=== PATIENT | male | born 1965 | race African-American/Black ===

== ENCOUNTER 2017-03-10 06:27 | Emergency (ER) | payer MEDICAID, OTHER ==
[~2017-03-10] VITALS: Ht 177.8 cm; Wt 86.2 kg
[~2017-03-10 06:27] MED LIST: NAPROXEN500 M2 ORAL; NKM
[2017-03-10 06:43] VITALS: BP 122/74
[2017-03-10 07:20] VITALS: BP 122/74
--- NOTE | 2017-03-10 07:26 | Emergency Room Report ---
History of Present Illness General Chief Complaint: General Complaint Source: Patient Present Illness HPI This patient states that he has noticed an itchy area on the skin of the back of his neck for the past several months. He has not seen his primary care physician for this. He denies fever or chills. He denies nausea or vomiting. He has no other complaints. Allergies: Coded Allergies: No Known Allergies (Unverified , 03/02/13) Patient History Past Medical History: none Social History: Denies: alcohol use, drug use, smoking Reviewed Nursing Documentation: PMH: Agreed, PSxH: Agreed Nursing Documentation-PMH Past Medical History: No Stated History Review of Systems All Other Systems: negative except mentioned in HPI Physical Exam Vital Signs Date Time Temp Pulse Resp B/P Pulse Ox O2 Delivery O2 Flow Rate FiO2 03/10/17 06:33 97.9 82 16 122/74 100 Room Air Sp02 EP Interpretation: reviewed, normal General Appearance: no apparent distress, alert, GCS 15, non-toxic Head: normocephalic, atraumatic Eyes: bilateral eye PERRL, bilateral eye normal inspection ENT: hearing grossly normal, normal pharynx, no angioedema, normal voice Neck: full range of motion, supple/symm/no masses Respiratory: no respiratory distress, no retraction, no accessory muscle use, speaking full sentences Cardiovascular #1: regular rate, rhythm, no edema Gastrointestinal: normal bowel sounds, non tender, soft, non-distended, no guarding, no rebound Rectal: deferred Musculoskeletal: back normal, gait/station normal, normal range of motion, non- tender Neurologic: alert, oriented x3, responsive, motor strength/tone normal, sensory intact, speech normal Psychiatric: judgement/insight normal, memory normal, mood/affect normal, no suicidal/homicidal ideation Skin: normal color, warm/dry, well hydrated, other - [id number] area of skin thickness with peeling c/w eczema. Medical Decision Making Diagnostic Impression: Primary Impression: Eczema Additional Impression: Dermatitis ER Course This patient has skin findings consistent with a mild eczema versus a mild dermatitis. Regardless likely this would respond to topical steroids. Instructed the patient to obtain Cortizone 10 Eczema which contains emollients and hydrocortisone. This is an [id number] preparation. I also instructed the patient that he can followup with his primary care physician or a spot washer. This is not an emergency medical condition. The patient's given return precautions and followup instructions. Last Vital Signs Date Time Temp Pulse Resp B/P Pulse Ox O2 Delivery O2 Flow Rate FiO2 03/10/17 06:43 97.9 82 16 122/74 100 Room Air Disposition: HOME, SELF-CARE Condition: Stable CHRISTINA CHAVES D.O. Mar 10, 2017 07:26
== END 2017-03-10 07:35 | disposition home or self-care (01) ==
LOC: EMR 06:45
DX: L30.9 Dermatitis, unspecified (principal)
CPT/HCPCS: 99282